=== PATIENT | female | born 1970 | race Caucasian/White ===

== ENCOUNTER → 2017-06-15 | Outpatient (CLI) | payer BC ==
[2017-06-15 15:51] VITALS: BP 148/105; PULSE 78; RESP 16; TEMP 98; BMI 36.6
--- NOTE | 2017-06-16 11:20 | P.HPBAR ---
Bariatric H&P - History & Physicial H&P Date: 06/15/17 History & Physicial: Visit/CC: talk about band removal/revision Patient initial contact: Initial weight: 104.326 kg Initial weight in pounds: 230.00 Height: 5 ft 6 in Initial BMI: 37.1 Last weight: Current weight: 102.994 kg Current weight in pounds: 227.06 Current BMI: 36.6 [place] body weight (based on NIH guidelines): 58.967 kg Excess body weight loss: 2.9% The patient is a 46 year-old F who presents for Bariatric Assessment. The patient presents today for lab band follow up. She's not been seen several years. She has not had her band adjusted due to chronic problems with dysphagia. The patient wishes to have her band removed and possibly convert to sleeve gastrectomy. She has a significant history of GERD. Past Medical History Past Medical History: Sleep Apnea/CPAP/BIPAP, Thyroid Disorder History of Any Multi-Drug Resistant Organisms: None Reported Past Surgical History: Bariatric Surgery, Cholecystectomy, Tubal Ligation, Uterine Ablation Additional Past Surgical History / Comment(s): lap band Past Anesthesia/Blood Transfusion Reactions: No Reported Reaction Smoking Status: Current every day smoker Surgical - Exam Vital Signs Temp Pulse Resp BP 98 F 78 16 148/105 06/15/17 15:48 06/15/17 15:48 06/15/17 15:48 06/15/17 15:48 - General well developed, well nourished, no distress - Eyes PERRL - ENT normal pinna - Neck no masses - Respiratory normal expansion - Cardiovascular Rhythm: regular - Abdomen Abdomen: soft, non tender Bariatric Assessment & Plan Plan: The patient will be arthritis for possible conversion sleeve gastrectomy. If this is not possible she will undergo removal of LAP-BAND system. Bariatric Checklist Checklist: Plan: Checklist: EGD: 1. Hiatal hernia: 2. H. Pylori: HgbA1c: Vitamin D: Smoking: Current every day smoker Primary care physician referral: Psychiatry clearance: Cardiology clearance: Sleep study: Diet journal: VTE risk score: VTE risk level: Rehab needs at discharge:
== END ==
LOC: BARWHC3 14:59
PROVIDERS: ATTEND Surgery
DX: Z48.815 Encounter for surgical aftercare following surgery on the digestive system (principal); F17.299 Nicotine dependence, other tobacco product, with unspecified nicotine-induced disorders; Z98.84 Bariatric surgery status
CPT/HCPCS: 99201

== ENCOUNTER 2017-08-20 06:53 | Day surgery (SDC) | payer BC ==
[2017-08-18 10:58] VITALS: BMI 36.1
[~2017-08-20 06:53] MED LIST: LACTATED RINGERS 1,000 ML IV SCH
[2017-08-20 07:20] VITALS: RESP 18; TEMP 97.7
[2017-08-20] MEDS ORDERED: LACTATED RINGERS 1,000 ML IV ONE (07:20)
[2017-08-20 07:30] LABS: Glucose,Whole Blood 186 mg/dL (75-99)
[2017-08-20] MEDS ORDERED: PROPOFOL 10 MG/ML 20 ML VIAL IV ONE (07:49)
[2017-08-20] MEDS ORDERED: LIDOCAINE 1% INJ 10MG/ML (20 ML MDV) ONE (07:49)
[2017-08-20] MEDS ORDERED: GLYCOPYRROLATE 0.2 MG/ML 2 ML VIAL ONE (07:49)
--- NOTE | 2017-08-20 07:53 | P.GSHP ---
History of Present Illness H&P Date: 08/20/17 Chief Complaint: GERD, morbid obesity This a 38-year-old female with a safer EGD. Patient has had complaints of GERD. She is mildly obese with BMI 36. Past Medical History Past Medical History: Cancer, Sleep Apnea/CPAP/BIPAP, Thyroid Disorder Additional Past Medical History / Comment(s): UNDIAGNOSISED SLEEP APNEA. BREAST CANCER History of Any Multi-Drug Resistant Organisms: None Reported Past Surgical History: Bariatric Surgery, Cholecystectomy, Tubal Ligation, Uterine Ablation Additional Past Surgical History / Comment(s): lap band,. LUMPECTOMY RT BREAST THEN RADIATION Past Anesthesia/Blood Transfusion Reactions: No Reported Reaction Smoking Status: Current every day smoker - Past Family History Mother Family Medical History: Cancer Medications and Allergies Home Medications Medication Instructions Recorded Confirmed Type Levothyroxine Sodium [Synthroid] 200 mcg PO DAILY 06/12/17 08/20/17 History methylPREDNISolone Dose Pack 4 mg PO DIRECTED 08/18/17 08/20/17 History [Medrol Dose Pack] Allergies Allergy/AdvReac Type Severity Reaction Status Date / Time marijuana AdvReac Rash/Hives Verified 08/18/17 10:58 Surgical - Exam Vital Signs Temp Pulse Resp BP Pulse Ox 97.7 F 67 18 135/84 96 08/20/17 07:18 08/20/17 07:18 08/20/17 07:18 08/20/17 07:18 08/20/17 07:18 - General well developed, no distress - Eyes PERRL - ENT normal pinna - Neck no masses - Respiratory normal expansion - Cardiovascular Rhythm: regular - Abdomen Abdomen: soft, non tender Results - Labs Abnormal Lab Results - Last 24 Hours (Table) 08/20/17 Range/Units 07:26 POC Glucose (mg/dL) 186 H (75-99) mg/dL Assessment and Plan Assessment: Morbid obesity, BMI 36 GERD we'll perform EGD.
--- NOTE | 2017-08-20 08:00 | P.OP ---
Date of Procedure: 08/20/17 Preoperative Diagnosis: GERD Morbid obesity Postoperative Diagnosis: Antral gastritis LAP-BAND without evidence of inflammation Mild esophagitis Procedure(s) Performed: EGD Anesthesia: MAC Surgeon: Tony Becker Pathology: other (Antrum, esophagus) Condition: stable Disposition: PACU Description of Procedure: The patient's placed on the endoscopy table in the lateral position. She received IV sedation. The gastroscope placed oropharynx passed in the esophagus and stomach. Scope was then placed through the pylorus. The first and second portion of the duodenum appeared normal. The scope was then brought back the antrum and this was mildly inflamed. A biopsies was performed. The scope was then retroflexed and the remainder stomach appeared normal. The patient a previous LAP-BAND device. This was without evidence of inflammation or erosion. The proximal gastric pouch appeared slightly enlarged. The GE junction was at 47 is. The distal esophagus was mildly inflamed a biopsies performed. The proximal esophagus appeared normal. Scope was withdrawn for patient.
[2017-08-20 08:23] VITALS: BP 112/71; PULSE 72
== END 2017-08-20 08:44 | disposition home or self-care (01) ==
LOC: ORWHC2ENDO 06:53
PROVIDERS: ATTEND Surgery
DX: K21.0 Gastro-esophageal reflux disease with esophagitis (principal); K29.50 Unspecified chronic gastritis without bleeding; E66.01 Morbid (severe) obesity due to excess calories; Z68.36 Body mass index [BMI] 36.0-36.9, adult; Z98.84 Bariatric surgery status; G47.33 Obstructive sleep apnea (adult) (pediatric); E07.9 Disorder of thyroid, unspecified; Z99.89 Dependence on other enabling machines and devices; Z85.3 Personal history of malignant neoplasm of breast; Z92.3 Personal history of irradiation; F17.200 Nicotine dependence, unspecified, uncomplicated; Z79.890 Hormone replacement therapy; Z79.52 Long term (current) use of systemic steroids; Z88.8 Allergy status to other drugs, medicaments and biological substances; Z98.51 Tubal ligation status
CPT/HCPCS: 81025; 88305; 43239; J2001; J2704

== ENCOUNTER → 2017-09-21 | Outpatient (CLI) | payer BC ==
[2017-09-21 14:25] VITALS: BP 124/82; PULSE 82; TEMP 98.2; BMI 37.0
--- NOTE | 2017-09-21 16:21 | P.HPBAR ---
Bariatric H&P - History & Physicial H&P Date: 09/21/17 History & Physicial: Visit/CC: presurgical visit Patient initial contact: Initial weight: 104.326 kg Initial weight in pounds: 230.00 Height: 5 ft 6 in Initial BMI: 37.1 Last weight: Current weight: 104.054 kg Current weight in pounds: 229.40 Current BMI: 37.0 [place] body weight (based on NIH guidelines): 58.967 kg Excess body weight loss: 0.5% The patient is a 47 year-old F who presents for Bariatric Assessment. The patient presents today for presurgical consultation. She wishes to have her band converted to sleeve. She's had issues with chronic dysphagia and GERD. Past Medical History Past Medical History: Cancer, Sleep Apnea/CPAP/BIPAP, Thyroid Disorder Additional Past Medical History / Comment(s): UNDIAGNOSISED SLEEP APNEA. BREAST CANCER History of Any Multi-Drug Resistant Organisms: None Reported Past Surgical History: Bariatric Surgery, Cholecystectomy, Tubal Ligation, Uterine Ablation Additional Past Surgical History / Comment(s): lap band,. LUMPECTOMY RT BREAST THEN RADIATION Past Anesthesia/Blood Transfusion Reactions: No Reported Reaction Past Psychological History: No Psychological Hx Reported Smoking Status: Current every day smoker Past Alcohol Use History: Occasional Additional Past Alcohol Use History / Comment(s): SMOKES < 1 PPD OFF AND ON SINCE AGE 16 Past Drug Use History: None Reported - Past Family History Mother Family Medical History: Cancer Surgical - Exam Vital Signs Temp Pulse BP 98.2 F 82 124/82 09/21/17 14:22 09/21/17 14:22 09/21/17 14:22 - General well developed, no distress - Eyes PERRL - Neck no masses - Respiratory normal expansion - Cardiovascular Rhythm: regular - Abdomen Abdomen: soft, non tender Bariatric Assessment & Plan Plan: The patient will be converted to sleeve gastrectomy once she obtains insurance authorization. She's had issues with chronic dysphagia and GERD. The patient understands the risks of surgery including possible conversion to the open procedure as well as issues with gastric staple line bleeding, scarring or perforation. Bariatric Checklist Checklist: Plan: Checklist: EGD: 1. Hiatal hernia: 2. H. Pylori: HgbA1c: Vitamin D: Smoking: Current every day smoker Primary care physician referral: Psychiatry clearance: Cardiology clearance: Sleep study: Diet journal: VTE risk score: VTE risk level: Rehab needs at discharge:
== END | disposition home or self-care (01) ==
LOC: BARWHC3 13:25
PROVIDERS: ATTEND Surgery
DX: Z01.818 Encounter for other preprocedural examination (principal); K21.9 Gastro-esophageal reflux disease without esophagitis; R13.10 Dysphagia, unspecified; F17.200 Nicotine dependence, unspecified, uncomplicated; Z98.84 Bariatric surgery status; Z90.49 Acquired absence of other specified parts of digestive tract
CPT/HCPCS: 99211

== ENCOUNTER → 2017-10-05 | Outpatient (CLI) | payer BC ==
[2017-10-05 13:31] VITALS: BMI 36.7
--- NOTE | 2017-11-23 13:19 | P.HPBAR ---
Bariatric H&P - History & Physicial H&P Date: 10/05/17 History & Physicial: Visit/CC: Patient initial contact: Initial weight: 104.326 kg Initial weight in pounds: Height: 5 ft 6 in Initial BMI: Last weight: Current weight: 103.238 kg Current weight in pounds: Current BMI: 36.7 [place] body weight (based on NIH guidelines): 58.967 kg Excess body weight loss: The patient is a 47 year-old F who presents for Bariatric Assessment. Patient presents today for follow-up. She's had issues of chronic dysphagia with her LAP-BAND. She is requesting conversion sleeve gastrectomy. Past Medical History Past Medical History: Cancer, Sleep Apnea/CPAP/BIPAP, Thyroid Disorder Additional Past Medical History / Comment(s): UNDIAGNOSISED SLEEP APNEA. BREAST CANCER History of Any Multi-Drug Resistant Organisms: None Reported Past Surgical History: Bariatric Surgery, Cholecystectomy, Tubal Ligation, Uterine Ablation Additional Past Surgical History / Comment(s): lap band,. LUMPECTOMY RT BREAST THEN RADIATION Past Anesthesia/Blood Transfusion Reactions: No Reported Reaction Past Psychological History: No Psychological Hx Reported Smoking Status: Current every day smoker Past Alcohol Use History: Occasional Additional Past Alcohol Use History / Comment(s): SMOKES < 1 PPD OFF AND ON SINCE AGE 16 Past Drug Use History: None Reported - Past Family History Mother Family Medical History: Cancer Surgical - Exam - General well developed, no distress - Eyes PERRL - Neck no masses - Respiratory normal expansion - Abdomen Abdomen: soft, non tender Bariatric Assessment & Plan Plan: Chronic dysphagia related to LAP-BAND. Patient will have conversion to the sleeve gastric removal of LAP-BAND. Bariatric Checklist Checklist: Plan: Checklist: EGD: 1. Hiatal hernia: 2. H. Pylori: HgbA1c: Vitamin D: Smoking: Current every day smoker Primary care physician referral: Psychiatry clearance: Cardiology clearance: Sleep study: Diet journal: VTE risk score: VTE risk level: Rehab needs at discharge:
== END ==
LOC: BARWHC3 08:52
PROVIDERS: ATTEND Surgery
DX: E66.01 Morbid (severe) obesity due to excess calories (principal)
CPT/HCPCS: 97804

== ENCOUNTER → 2017-10-24 | Outpatient (CLI) | payer BC ==
[2017-10-24 11:41] LABS: Basophils # (A) 0.1 k/uL (0-0.2); Basophils % (A) 1 %; Eosinophils # (A) 0.3 k/uL (0-0.7); Eosinophils % (A) 3 %; HCT 45.6 % (34.0-46.0); HGB 14.9 gm/dL (11.4-16.0); Lymphocytes # (A) 1.6 k/uL (1.0-4.8); Lymphocytes % (A) 14 %; MCHC 32.7 g/dL (31.0-37.0); MCV 91.9 fL (80.0-100.0); Mean Platelet Volume 8.1; Monocytes # (A) 0.5 k/uL (0-1.0); Monocytes % (A) 5 %; Neutrophils # (A) 8.8 k/uL (1.3-7.7); Neutrophils % (A) 77 %; Platelet Count 279 k/uL (150-450); RBC 4.97 m/uL (3.80-5.40); RDW 15.1 % (11.5-15.5); WBC 11.4 k/uL (3.8-10.6)
[2017-10-24 11:54] LABS: ALT 36 U/L (9-52); AST 20 U/L (14-36); Albumin 4.2 g/dL (3.5-5.0); Alkaline Phosphatase 45 U/L (38-126); Anion Gap 13 mmol/L; Blood Urea Nitrogen 20 mg/dL (7-17); Calcium 9.7 mg/dL (8.4-10.2); Carbon Dioxide 23 mmol/L (22-30); Chloride 105 mmol/L (98-107); Glucose 105 mg/dL (74-99); Potassium 4.8 mmol/L (3.5-5.1); Sodium 141 mmol/L (137-145); Total Bilirubin 0.3 mg/dL (0.2-1.3); Total Protein 6.8 g/dL (6.3-8.2)
== END | disposition home or self-care (01) ==
LOC: LABPAT 11:07
PROVIDERS: ATTEND Surgery
DX: Z01.818 Encounter for other preprocedural examination (principal)
CPT/HCPCS: 36415; 80053; 85025

== ENCOUNTER 2017-10-26 07:52 | Inpatient (IN) | payer BC ==
[~2017-10-26 07:52] MED LIST changes: +DEXAMETHASONE SOD PHOSPHATE 10 MG/ML 1 ML VIAL IV ONE; +ENOXAPARIN 40 MG/0.4 ML SYRINGE SQ ONE; -LACTATED RINGERS 1,000 ML IV SCH; +MIDAZOLAM 2 MG/2 ML VIAL IV PRN; +ONDANSETRON 4 MG/2 ML VIAL IVP ONE; +SCOPOLAMINE 1.5MG/72HR PATCH TRANSDERM ONE; +ceFAZolin IN SWFI 2 GM/20 ML SYRINGE IVP ONE; +fentaNYL (PF) 50 MCG/ML 2 ML AMP IV PRN
[2017-10-26] MEDS ORDERED: LIDOCAINE 1% 20 ML VIAL (10MG/ML) FOR IV START INTRADERMA ONE (08:24)
[2017-10-26] MEDS: LACTATED RINGERS 1,000 ML IV SCH (08:24)
[2017-10-26 08:42] LABS: Glucose,Whole Blood 130 mg/dL (75-99)
--- NOTE | 2017-10-26 08:46 | P.GSHP ---
History of Present Illness H&P Date: 10/26/17 Chief Complaint: GERD, dysphagia 's of 47-year-old female who presents today for laparoscopic removal LAP-BAND system and conversion sleeve gastrectomy. Patient's had issues with GERD and dysphagia. Past Medical History Past Medical History: Cancer, Sleep Apnea/CPAP/BIPAP, Thyroid Disorder Additional Past Medical History / Comment(s): UNDIAGNOSISED SLEEP APNEA. BREAST CANCER History of Any Multi-Drug Resistant Organisms: None Reported Past Surgical History: Bariatric Surgery, Cholecystectomy, Tubal Ligation, Uterine Ablation Additional Past Surgical History / Comment(s): lap band,. LUMPECTOMY RT BREAST THEN RADIATION Past Anesthesia/Blood Transfusion Reactions: No Reported Reaction Additional Past Alcohol Use History / Comment(s): SMOKES < 1 PPD OFF AND ON SINCE AGE 16 - Past Family History Mother Family Medical History: Cancer Medications and Allergies Home Medications Medication Instructions Recorded Confirmed Type Levothyroxine Sodium [Synthroid] 200 mcg PO DAILY 06/12/17 10/26/17 History metFORMIN HCL [Glucophage] 500 mg PO BID 10/05/17 10/26/17 History Allergies Allergy/AdvReac Type Severity Reaction Status Date / Time marijuana AdvReac Rash/Hives Verified 10/13/17 11:01 Surgical - Exam Vital Signs Temp Pulse Resp BP Pulse Ox 98.2 F 75 16 120/81 98 10/26/17 08:20 10/26/17 08:20 10/26/17 08:20 10/26/17 08:20 10/26/17 08:20 - General well developed, no distress - Eyes PERRL - ENT normal pinna - Neck no masses - Respiratory normal expansion - Cardiovascular Rhythm: regular - Abdomen Abdomen: soft, non tender Results - Labs Abnormal Lab Results - Last 24 Hours (Table) 10/26/17 Range/Units 08:32 POC Glucose (mg/dL) 130 H (75-99) mg/dL Assessment and Plan Assessment: GERD, dysphagia. We'll perform laparoscopic removal of LAP-BAND system and conversion to sleeve gastrectomy. Patient aware the risks of surgery including conversion O procedure and injury to the stomach liver spleen vagotomy dysphagia recurrent GERD symptoms as well as risk of gastric staple disruption, bleeding or scarring.
[2017-10-26] MEDS ORDERED: LIDOCAINE 1% INJ 10MG/ML (20 ML MDV) ONE (09:11)
[2017-10-26] MEDS ORDERED: MIDAZOLAM 2 MG/2 ML VIAL ONE (09:11)
[2017-10-26] MEDS ORDERED: fentaNYL (PF) 50 MCG/ML 2 ML AMP ONE (09:11)
[2017-10-26] MEDS ORDERED: GLYCOPYRROLATE 0.2 MG/ML 2 ML VIAL ONE (09:11)
[2017-10-26] MEDS ORDERED: SUCCINYLCHOLINE CHLORIDE 100 MG/5 ML SYR IV ONE (09:11)
[2017-10-26] MEDS ORDERED: NEOSTIGMINE 1 MG/ML 10 ML VIAL ONE (09:11)
[2017-10-26] MEDS ORDERED: ROCURONIUM BROMIDE 10 MG/ML 10 ML VIAL IV ONE (09:11)
[2017-10-26] MEDS ORDERED: PROPOFOL 10 MG/ML 20 ML VIAL IV ONE (09:11)
[2017-10-26] MEDS ORDERED: BUPIVACAINE (PF) 0.5% 30 ML VIAL SQ ONE (09:46)
[2017-10-26] MEDS ORDERED: ONDANSETRON 4 MG/2 ML VIAL IVP ONE (11:22)
[2017-10-26] MEDS ORDERED: METOCLOPRAMIDE 5 MG/ML 2 ML VIAL IVP ONE (11:26)
[2017-10-26] MEDS ORDERED: LACTATED RINGERS 1,000 ML IV ONE (11:27)
[2017-10-26] MEDS ORDERED: diphenhydrAMINE 50 MG/ML 1 ML VIAL IVP PRN (11:34)
[2017-10-26] MEDS ORDERED: HYOSCYAMINE ORAL DROPS 1.875 MG/15 ML BOTTLE PO PRN (11:34)
[2017-10-26] MEDS ORDERED: SIMETHICONE 40 MG/0.6 ML DROPS 2,000 MG/30 ML BOTTLE PO PRN (11:34)
[2017-10-26] MEDS ORDERED: NALOXONE 0.4 MG/ML 1 ML VIAL IV PRN (11:34)
[2017-10-26] MEDS ORDERED: PROMETHAZINE INJ 25 MG/ML 1 ML VIAL IVPB ONE (11:34)
--- NOTE | 2017-10-26 11:59 | P.OP ---
Date of Procedure: 10/26/17 Preoperative Diagnosis: Screening colonoscopy Postoperative Diagnosis: Diverticulosis Tortuous bowel R Procedure(s) Performed: Colonoscopy Anesthesia: MAC Surgeon: Tony Becker Pathology: none sent Condition: stable Disposition: PACU Description of Procedure: The patient's placed on the endoscopy table in the lateral position. She received IV sedation. Digital rectal exam was performed which revealed no abnormalities. Flexible colonoscope was then placed patient anus passed throughout the colon. The scope could not be placed into the right colon. Several times made to maneuver the colonoscope however this a possible. At this point the colonoscope was withdrawn and a pediatric loss scope was placed in the colon. The pediatric loss (placed the right colon. This point scope withdrawn. The transverse colon appeared normal. In the descending; was mild diverticular changes. Scope was then brought back the rectum and this appeared normal. Scope was withdrawn for patient. Patient was scheduled for a barium enema.
[2017-10-26 12:33] VITALS: BMI 34.6
[2017-10-26] MEDS: HYDROmorphone 0.5 MG/0.5 ML SYRINGE IVP PRN ×3 (12:56→21:14)
[2017-10-26] MEDS: ALBUTEROL NEBULIZED 2.5 MG/3 ML INHALATION SCH ×3 (13:31→20:31)
[2017-10-26] MEDS: KETOROLAC 30 MG/ML 1 ML VIAL IVP SCH ×3 (14:45→23:36)
[2017-10-26 17:00] LABS: Glucose,Whole Blood 183 mg/dL (75-99)
[2017-10-26] MEDS: 0.9% NACL WITH KCL 20 MEQ/L 1,000 ML IV SCH ×2 (21:13→21:14)
[2017-10-26 23:13] LABS: Glucose,Whole Blood 161 mg/dL (75-99)
[2017-10-26] MEDS: INSULIN ASPART 100 UNIT/ML 1 ML 10 ML VIAL SQ SCH (23:33)
[2017-10-27] MEDS: HYDROmorphone 0.5 MG/0.5 ML SYRINGE IVP PRN ×4 (00:20→13:01)
[2017-10-27] MEDS: 0.9% NACL WITH KCL 20 MEQ/L 1,000 ML IV SCH ×2 (00:21→09:05)
[2017-10-27] MEDS: ONDANSETRON 4 MG/2 ML VIAL IVP PRN ×2 (01:57→09:14)
[2017-10-27] MEDS: LACTATED RINGERS 1,000 ML IV SCH (04:25)
[2017-10-27] MEDS: KETOROLAC 30 MG/ML 1 ML VIAL IVP SCH ×2 (06:09→13:02)
[2017-10-27] MEDS ORDERED: LEVOTHYROXINE 100 MCG TAB PO SCH (06:30)
[2017-10-27] MEDS: INSULIN ASPART 100 UNIT/ML 1 ML 10 ML VIAL SQ SCH ×2 (06:58→12:08)
[2017-10-27 06:59] LABS: Glucose,Whole Blood 129 mg/dL (75-99)
[2017-10-27] MEDS ORDERED: metFORMIN 500 MG TAB PO SCH (07:30)
[2017-10-27] MEDS ORDERED: 1: MVI, ADULT NO.4 WITH VIT K 10 ML, THIAMINE 100 MG, FOLIC ACID 1 MG, POTASSIUM CHLORID IV SCH ×6 (08:00)
[2017-10-27 08:08] VITALS: BP 109/62; RESP 16; TEMP 97.4
[2017-10-27] MEDS: ALBUTEROL NEBULIZED 2.5 MG/3 ML INHALATION SCH ×3 (08:08→15:16)
--- NOTE | 2017-10-27 08:20 | FL ---
EXAMINATION TYPE: FL UGI DATE OF EXAM: 10/27/2017 LIMITED UGI: CLINICAL HISTORY: Obesity, TECHNIQUE: Limited esophagram is performed utilizing 2 oz isovue 370 . A total of 39 seconds of fluoroscopic time was utilized during procedure. 6 images. COMPARISON: None. FINDINGS: The patient swallowed contrast without difficulty or delay. Esophageal peristalsis and mo tility are within normal limits. There is good flow of contrast along the diaphragmatic hiatus into proximal stomach and subsequent flow into gastric sleeve. There is good flow from distal sleeve into pylorus and duodenal sweep. Patient remains asymptomatic. There is no evidence of contrast extravasat ion to suggest leak. IMPRESSION: No evidence of leak or significant obstruction status post recent gastric sleeve surgery.
[2017-10-27] MEDS ORDERED: ENOXAPARIN 40 MG/0.4 ML SYRINGE SQ SCH (09:00)
[2017-10-27] MEDS ORDERED: PANTOPRAZOLE 40 MG/10 ML VIAL IV SCH (09:00)
[2017-10-27 09:01] LABS: Basophils % (A) 0 %; Eosinophils % (A) 0 %; HCT 38.3 % (34.0-46.0); HGB 12.8 gm/dL (11.4-16.0); Lymphocytes # (A) 1.4 k/uL (1.0-4.8); Lymphocytes % (A) 9 %; MCH 30.4 pg (25.0-35.0); MCHC 33.3 g/dL (31.0-37.0); MCV 91.3 fL (80.0-100.0); Mean Platelet Volume 8.2; Monocytes # (A) 0.9 k/uL (0-1.0); Monocytes % (A) 6 %; Neutrophils # (A) 12.5 k/uL (1.3-7.7); Neutrophils % (A) 83 %; Platelet Count 285 k/uL (150-450); RDW 14.6 % (11.5-15.5)
[2017-10-27 09:12] LABS: Anion Gap 9 mmol/L; Blood Urea Nitrogen 10 mg/dL (7-17); Calcium 8.3 mg/dL (8.4-10.2); Carbon Dioxide 26 mmol/L (22-30); Chloride 106 mmol/L (98-107); Phosphorus 3.3 mg/dL (2.5-4.5); Potassium 4.9 mmol/L (3.5-5.1); Sodium 141 mmol/L (137-145)
[2017-10-27 11:05] LABS: Glucose,Whole Blood 137 mg/dL (75-99)
[2017-10-27 11:43] VITALS: PULSE 70
--- NOTE | 2017-10-27 13:07 | CONS ---
CONSULTATION DATE OF SERVICE: 10/26/2017 SUBJECTIVE: A 47-year-old white female, status post gastric sleeve. She is very lethargic. She was started back on home medicines of Synthroid and Glucophage. She had some chest pressure from gas pain from the gastric sleeve. Vital signs appear to be stable. CARDIOVASCULAR: S1, S2. LUNGS: Clear. ENDOCRINE: BMI is over 40. PSYCH: Fair mood and affect. NEURO: She is sleepy. ASSESSMENT: 1. Status post gastric sleeve. 2. Hypothyroidism. 3. Diabetes mellitus. Resume her home levothyroxine, metformin. Monitor the patient. She is doing well. Her SATs in good 90, high 90s on room air. Pulse rate is normal. Possibly will be going home with Surgery in the in the morning. MMODL / IJN: [id number] /
--- NOTE | 2017-10-27 14:12 | P.DS ---
Providers Date of admission: 10/26/17 07:52 Expected date of discharge: 10/27/17 Attending physician: Tony Becker Consults: 10/26/17 11:34 Consult Physician Routine Consulting Provider: Tad Mares Consult Reason/Comments: Medical management Do you want consulting provider notified?: Yes Primary care physician: Pranav Block MD Hospital Course: 47-year-old female who presented to undergo removal of the LAP-BAND system and converted to a sleeve gastrectomy. Patient has had symptoms with GERD and dysphagia. On October 26 patient underwent the procedure. There were no postop events. Patient was felt to be appropriate to be discharged home. Patient was tolerating a bariatric diet. Is up ambulating on the unit surgical incision sites were dry Impression discharge diagnosis Morbid obesity due to excessive calorie BMI 34 Status post October removal of the LAP-BAND system converted to a sleeve History of sleep apnea with the use of CPAP Current every day smoker The above impression and plan of care have been discussed and directed by signing physician. Natasha Mcmahan nurse practitioner acting as scribe for signing physician. Plan - Discharge Summary Discharge Rx Participant: Yes New Discharge Prescriptions: New Bisacodyl [Dulcolax] 5 mg PO DAILY PRN #10 tablet. PRN Reason: Constipation Ondansetron Odt [Zofran Odt] 4 mg PO Q8HR PRN #9 tab PRN Reason: Nausea Simethicone 40 mg/0.6 ml Drops [Mylicon Drops] 40 mg PO PCHS PRN #30 ml PRN Reason: Gas Omeprazole [PriLOSEC] 20 mg PO AC-BRKFST #30 cap HYDROcodone/APAP 7.5-325MG [[place] 7.5-325] 1 tab PO Q4H PRN 3 Days #18 tab PRN Reason: Mild Pain Continue Levothyroxine Sodium [Synthroid] 200 mcg PO DAILY metFORMIN HCL [Glucophage] 500 mg PO BID Discharge Medication List Levothyroxine Sodium [Synthroid] 200 mcg PO DAILY 06/12/17 [History] metFORMIN HCL [Glucophage] 500 mg PO BID 10/05/17 [History] Bisacodyl [Dulcolax] 5 mg PO DAILY PRN #10 tablet. 10/27/17 [Rx] HYDROcodone/APAP 7.5-325MG [[place] 7.5-325] 1 tab PO Q4H PRN 3 Days #18 tab 10/27 [Rx] Omeprazole [PriLOSEC] 20 mg PO AC-BRKFST #30 cap 10/27/17 [Rx] Ondansetron Odt [Zofran Odt] 4 mg PO Q8HR PRN #9 tab 10/27/17 [Rx] Simethicone 40 mg/0.6 ml Drops [Mylicon Drops] 40 mg PO PCHS PRN #30 ml [Rx] Follow up Appointment(s)/Referral(s): Tony Becker MD [STAFF PHYSICIAN] - 1 Week Activity/Diet/Wound Care/Special Instructions: Bariatric clear diet No tub bath for six weeks. Shower daily. No lifting over 10 pounds for the next 6 weeks. Do not remove the surgical plastic dressings from surgical incision site Keep hydrated encourage drinking water. May use ice packs to surgical site. No driving while taking narcotic for pain. Discharge Disposition: HOME SELF-CARE
--- NOTE | 2017-12-27 13:22 | P.OP ---
Date of Procedure: 10/27/17 Preoperative Diagnosis: Dysphagia Morbid obesity Postoperative Diagnosis: Dysphagia Morbid obesity, BMI 35 Procedure(s) Performed: Laparoscopic removal of LAP-BAND system Laparoscopic sleeve gastrectomy Anesthesia: ABBI Surgeon: Tony Becker Estimated Blood Loss (ml): 10 Pathology: other (Stomach) Condition: stable Disposition: PACU Description of Procedure: The patient was placed on the operating room table in the supine position. She received general anesthesia and then was placed in dorsal lithotomy position. Her abdomen was prepped and draped in sterile fashion. The skin incision sites were anesthetized 1% local Xylocaine. And then the skin was incised with an 11 blade in the left lateral position. Using blunt and sharp dissection and electrocautery the LAP-BAND port was dissected free from the subcutaneous tissues. The PEG tube was then cut. Using a blade less trocar under direct visualization the peritoneal cavity was entered. The abdomen was insufflated and then a 5 mm laparoscope was placed into the peritoneal cavity. A 5 mm trocar was placed in the right epigastric, and right lateral position. A 15 mm trocar was placed in the supra-umbilical position and another 5 mm trocar was placed in the left lateral position. The left lateral lobe of the liver was retracted. The LAP-BAND device was seen. The anterior gastric wall plication was taken down with sharp dissection. The LAP-BAND device was then cut and withdrawn from around stomach. The LAP-BAND device was then extracted through the 15 mm trocar site. The stomach was visualized. The greater curvature of the stomach was then dissected using the Harmonic scissors. The dissection occurred approximately 5 cm from the pylorus to the level of the left tess. There was no hiatal hernia seen. At this point a 40-[place] bougie dilator was placed the oropharynx and passed into the esophagus and into the stomach by the MUD MIXER. The sleeve gastrectomy was performed by using the powered echelon stapler with a seam guard buttress material. Sequential firings of the stapler were performed. The gastric remnant was then brought out through the 15 mm trocar site. The dilator was withdrawn. And a orogastric tube was replaced into the stomach. The stomach was insufflated with 200 mL of methylene blue normal saline. There was no evidence of extravasation. The abdomen was irrigated there is no bleeding seen. The Deny-Juan device was used to close the 15 mm trocar with 0 Vicryl. Skin was closed with interrupted 3-0 Monocryl sutures once the trochars withdrawn. Dermabond dressing was applied. Patient was sent to recovery in stable condition.
== END 2017-10-27 15:40 | disposition home or self-care (01) | DRG 328 ==
LOC: 2ORMAIN 07:52 → 3SUR 11:14
PROVIDERS: ADMIT Surgery; ATTEND Surgery
PROC: 0DB64Z3 Excision of Stomach, Percutaneous Endoscopic Approach, Vertical (ICD-10-PCS; principal; 2017-10-26 09:15)
PROC: 0DP64CZ Removal of Extraluminal Device from Stomach, Percutaneous Endoscopic Approach (ICD-10-PCS; principal; 2017-10-26 09:15)
DX: K21.9 Gastro-esophageal reflux disease without esophagitis (principal); R13.10 Dysphagia, unspecified; E03.9 Hypothyroidism, unspecified; E11.9 Type 2 diabetes mellitus without complications; E66.01 Morbid (severe) obesity due to excess calories; F17.200 Nicotine dependence, unspecified, uncomplicated; G47.30 Sleep apnea, unspecified; K57.90 Diverticulosis of intestine, part unspecified, without perforation or abscess without bleeding; Z85.3 Personal history of malignant neoplasm of breast; Z68.34 Body mass index [BMI] 34.0-34.9, adult; Z98.84 Bariatric surgery status; Z90.49 Acquired absence of other specified parts of digestive tract; Z92.3 Personal history of irradiation; Z79.84 Long term (current) use of oral hypoglycemic drugs; Z79.890 Hormone replacement therapy; Z88.8 Allergy status to other drugs, medicaments and biological substances; Z68.35 Body mass index [BMI] 35.0-35.9, adult
CPT/HCPCS: 36415; 74240; 80051; 80053; 81025; 82310; 82565; 83735; 84100; 84520; 85025; 88307; 88311; 88341; 88342; 94640; 94760; 94762

== ENCOUNTER → 2017-11-09 | Outpatient (CLI) | payer BC ==
[2017-11-09 14:04] VITALS: BP 116/81; PULSE 80; RESP 20; TEMP 98.3; BMI 33.0
--- NOTE | 2017-11-09 17:02 | P.HPBAR ---
Bariatric H&P - History & Physicial H&P Date: 11/09/17 History & Physicial: Visit/CC: post op f/u Patient initial contact: Initial weight: 104.326 kg Initial weight in pounds: 230.00 Height: 5 ft 6 in Initial BMI: 37.1 Last weight: Current weight: 92.805 kg Current weight in pounds: 204.60 Current BMI: 33.0 [place] body weight (based on NIH guidelines): 58.967 kg Excess body weight loss: 25.3% The patient is a 47 year-old F who presents for Bariatric Assessment. Patient presents today for postoperative visit from sleeve gastrectomy. Patient is doing quite well. She has had some minimal GERD. Her pathology was reviewed. 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 I recommended that she see a medical oncologist. Patient is already has an established relationship with a medical oncologist in [place] who treated her for breast cancer. Past Medical History Past Medical History: Cancer, Diabetes Mellitus, Sleep Apnea/CPAP/BIPAP, Thyroid Disorder Additional Past Medical History / Comment(s): UNDIAGNOSISED SLEEP APNEA. BREAST CANCER History of Any Multi-Drug Resistant Organisms: None Reported Past Surgical History: Bariatric Surgery, Cholecystectomy, Tubal Ligation, Uterine Ablation Additional Past Surgical History / Comment(s): lap band with removal, gastric sleeve 10/26/17. LUMPECTOMY RT BREAST THEN RADIATION Past Anesthesia/Blood Transfusion Reactions: No Reported Reaction Past Psychological History: No Psychological Hx Reported Smoking Status: Current every day smoker Past Alcohol Use History: Occasional Additional Past Alcohol Use History / Comment(s): SMOKES < 1 PPD OFF AND ON SINCE AGE 16 Past Drug Use History: None Reported - Past Family History Mother Family Medical History: Cancer Surgical - Exam Vital Signs Temp Pulse Resp BP 98.3 F 80 20 116/81 11/09/17 14:01 11/09/17 14:01 11/09/17 14:01 11/09/17 14:01 - General well developed, no distress - Eyes PERRL - ENT normal pinna - Neck no masses - Respiratory normal expansion - Cardiovascular Rhythm: regular - Abdomen Abdomen: soft, non tender Bariatric Assessment & Plan Plan: Status post sleeve gastrectomy. Patient is doing quite well. Patient will follow-up with her local medical oncologist regarding her spindle cell tumor on her surgical specimen. Patient follow-up myself in 1 month. Bariatric Checklist Checklist: Plan: Checklist: EGD: 1. Hiatal hernia: 2. H. Pylori: HgbA1c: Vitamin D: Smoking: Current every day smoker Primary care physician referral: Umair Psychiatry clearance: Cardiology clearance: Sleep study: Diet journal: VTE risk score: VTE risk level: Rehab needs at discharge:
== END | disposition home or self-care (01) ==
LOC: BARWHC3 13:00
PROVIDERS: ATTEND Surgery
DX: Z48.815 Encounter for surgical aftercare following surgery on the digestive system (principal); F17.210 Nicotine dependence, cigarettes, uncomplicated; E66.01 Morbid (severe) obesity due to excess calories; Z68.33 Body mass index [BMI] 33.0-33.9, adult; Z90.49 Acquired absence of other specified parts of digestive tract; Z98.890 Other specified postprocedural states; Z98.84 Bariatric surgery status
CPT/HCPCS: 97803; 99211

== ENCOUNTER → 2017-12-07 | Outpatient (CLI) | payer BC ==
[2017-12-07 15:05] VITALS: BP 124/77; PULSE 74; RESP 20; TEMP 98.6; BMI 31.3
--- NOTE | 2017-12-07 16:52 | P.HPBAR ---
Bariatric H&P - History & Physicial H&P Date: 12/07/17 History & Physicial: Visit/CC: follow up Patient initial contact: Initial weight: 104.326 kg Initial weight in pounds: 230.00 Height: 5 ft 6 in Initial BMI: 37.1 Last weight: Current weight: 87.997 kg Current weight in pounds: 194.00 Current BMI: 31.3 [place] body weight (based on NIH guidelines): 58.967 kg Excess body weight loss: 35.9% The patient is a 47 year-old F who presents for Bariatric Assessment. The patient presents today for sleeve gastrectomy follow-up. She's had some minimal cognitive GERD. She's had excellent weight loss. Past Medical History Past Medical History: Cancer, Diabetes Mellitus, Sleep Apnea/CPAP/BIPAP, Thyroid Disorder Additional Past Medical History / Comment(s): UNDIAGNOSISED SLEEP APNEA. BREAST CANCER History of Any Multi-Drug Resistant Organisms: None Reported Past Surgical History: Bariatric Surgery, Cholecystectomy, Tubal Ligation, Uterine Ablation Additional Past Surgical History / Comment(s): lap band with removal, gastric sleeve 10/26/17. LUMPECTOMY RT BREAST THEN RADIATION Past Anesthesia/Blood Transfusion Reactions: No Reported Reaction Past Psychological History: No Psychological Hx Reported Smoking Status: Current every day smoker Past Alcohol Use History: Occasional Additional Past Alcohol Use History / Comment(s): SMOKES < 1 PPD OFF AND ON SINCE AGE 16 Past Drug Use History: None Reported - Past Family History Mother Family Medical History: Cancer Surgical - Exam Vital Signs Temp Pulse Resp BP 98.6 F 74 20 124/77 12/07/17 15:00 12/07/17 15:00 12/07/17 15:00 12/07/17 15:00 - General well developed, no distress - Eyes PERRL - ENT normal pinna - Neck no masses - Respiratory normal expansion - Abdomen Abdomen: soft, non tender Bariatric Assessment & Plan Plan: Status post sleeve gastrectomy. Patient is doing quite well. Her GERD is minimal will be observed. He'll follow-up in one month. Bariatric Checklist Checklist: Plan: Checklist: EGD: 1. Hiatal hernia: 2. H. Pylori: HgbA1c: Vitamin D: Smoking: Current every day smoker Primary care physician referral: Umair Psychiatry clearance: Cardiology clearance: Sleep study: Diet journal: VTE risk score: VTE risk level: Rehab needs at discharge:
== END | disposition home or self-care (01) ==
LOC: BARWHC3 14:14
PROVIDERS: ATTEND Surgery
DX: Z48.815 Encounter for surgical aftercare following surgery on the digestive system (principal); K21.9 Gastro-esophageal reflux disease without esophagitis; F17.200 Nicotine dependence, unspecified, uncomplicated; Z98.84 Bariatric surgery status
CPT/HCPCS: 97803; 99211